=== PATIENT | female | born 2005 | race Caucasian/White ===

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

== ENCOUNTER 2024-10-25 21:07 | Emergency (ER) | payer OTHER ==
[2024-10-25 21:27] VITALS: BP 123/88; PULSE 108
[2024-10-25] MEDS: Bacitracin Oint 1 GM U/D Packet TOP ONE (21:45)
== END 2024-10-25 21:50 | disposition home or self-care (01) ==
LOC: JP.ED 21:07
DX: S00.01XA Abrasion of scalp, initial encounter (principal); Z79.899 Other long term (current) drug therapy; W01.198A Fall on same level from slipping, tripping and stumbling with subsequent striking against other object, initial encounter
CPT/HCPCS: 99283

== ENCOUNTER 2025-02-10 01:07 | Emergency (ER) | payer OTHER ==
[2025-02-10 01:25] VITALS: BP 109/73; PULSE 116
== END 2025-02-10 01:46 | disposition home or self-care (01) ==
LOC: JP.ED 01:07
DX: Z03.823 Encounter for observation for suspected inserted (injected) foreign body ruled out (principal); Z79.899 Other long term (current) drug therapy
CPT/HCPCS: 99283